=== PATIENT | male | born 1955 | race Caucasian/White ===

== ENCOUNTER → 2020-05-29 | Outpatient (CLI) | payer MEDICARE | END | disposition home or self-care (01) | LOC: CFH 12:33 | PROVIDERS: ATTEND Internal Medicine | DX: I70.0 Atherosclerosis of aorta (principal); E78.2 Mixed hyperlipidemia; I25.84 Coronary atherosclerosis due to calcified coronary lesion; E11.69 Type 2 diabetes mellitus with other specified complication | CPT/HCPCS: 78452; 93017; A9502 ==